=== PATIENT | male | born 1930 | race Caucasian/White ===

== ENCOUNTER 2018-08-22 12:27 | Emergency (ER) | payer OTHER ==
[2018-08-22 13:02] LABS: ADD MAN DIFF? NO
[2018-08-22 13:08] LABS: BASOPHILS % 0.4 % (0.0-2.0); EOSINOPHILS # 0.1 10^3/ul (0.0-0.5); EOSINOPHILS % 2.5 % (0.0-7.0); HEMATOCRIT 26.1 % (42.0-52.0); HEMOGLOBIN 8.4 g/dl (14.0-18.0); LYMPHOCYTES # 1.1 10^3/ul (0.8-2.9); LYMPHOCYTES % 19.9 % (15.0-51.0); MEAN CORPUSCULAR HEMOGLOBIN 33.2 pg (29.0-33.0); MEAN CORPUSCULAR HGB CONC 32.2 g/dl (32.0-37.0); MEAN CORPUSCULAR VOLUME 103.2 fl (82.0-101.0); MEAN PLATELET VOLUME 10.3 fl (7.4-10.4); MONOCYTE # 0.3 10^3/ul (0.3-0.9); MONOCYTES % 5.5 % (0.0-11.0); NEUTROPHIL # 4.1 10^3/ul (1.6-7.5); NEUTROPHILS % 71.3 % (39.0-77.0); PLATELET COUNT 219 10^3/UL (140-415); RED BLOOD COUNT 2.53 10^6/ul (4.70-6.10); RED CELL DISTRIBUTION WIDTH 17.5 % (11.5-14.5)
[2018-08-22 13:08] LABS: WHITE BLOOD COUNT 5.7 10^3/ul (4.8-10.8)
[2018-08-22] MEDS: morphine 4 MG/ML VIAL IV (13:12)
[2018-08-22] MEDS: ONDANSETRON 4 MG INJ IV (13:12)
[2018-08-22 13:28] LABS: ALBUMIN 3.6 g/dl (3.3-4.9); INR 1.49; PROTIME 18.3 Sec (11.9-14.9); PT RATIO 1.4
[2018-08-22 13:29] LABS: PARTIAL THROMBOPLASTIN TIME 49.1 Sec (23.0-35.0)
[2018-08-22 13:30] LABS: ALANINE AMINOTRANSFERASE 23 IU/L (13-69); ALKALINE PHOSPHATASE 87 IU/L (42-121); ANION GAP 10 (5-13); ASPARTATE AMINO TRANSFERASE 23 IU/L (15-46); BILIRUBIN,INDIRECT 0.8 mg/dl (0-1.1); BILIRUBIN,TOTAL 0.8 mg/dl (0.2-1.3); BLOOD UREA NITROGEN 19 mg/dl (7-20); CALCIUM 9.3 mg/dl (8.4-10.2); CARBON DIOXIDE 29 mmol/L (21-31); CHLORIDE 101 mmol/L (97-110); CREATINE KINASE 36 IU/L (23-200); CREATININE 1.49 mg/dl (0.61-1.24); GLUCOSE 113 mg/dl (70-220); POTASSIUM 3.7 mmol/L (3.5-5.1); SODIUM 140 mmol/L (135-144); TOTAL PROTEIN 6.3 g/dl (6.1-8.1)
[2018-08-22 13:42] LABS: B-TYPE NATRIURETIC PEPTIDE 3460 PG/ML (0-450); CK INDEX 2.1; CK-MB 0.76 ng/ml (0.0-2.4); TROPONIN-I < 0.012 ng/ml (0.000-0.120)
[2018-08-22 13:53] LABS: ALBUMIN/GLOBULIN RATIO 1.33
== END 2018-08-22 16:34 | disposition home or self-care (01) ==
LOC: E/R 16:34
DX: S72.344A Nondisplaced spiral fracture of shaft of right femur, initial encounter for closed fracture (principal); I10 Essential (primary) hypertension; R93.0 Abnormal findings on diagnostic imaging of skull and head, not elsewhere classified; W01.0XXA Fall on same level from slipping, tripping and stumbling without subsequent striking against object, initial encounter; Y92.002 Bathroom of unspecified non-institutional (private) residence as the place of occurrence of the external cause
CPT/HCPCS: 29505; 70450; 72170; 73550; 73562; 80053; 82550; 82553; 83880; 84484; 85025; 85610; 85730; 93005; 96374; 96375; 99285-25